=== PATIENT | male | born 1995 | race Caucasian/White ===

== ENCOUNTER 2016-07-28 21:46 | Emergency (ER) | payer BC, MEDICAID ==
[~2016-07-28] VITALS: Ht 180.3 cm; Wt 84.0 kg
[2016-07-28] MEDS ORDERED: ONDANSETRON 4 MG (ZOFRAN) TABLET PO ONE (22:45)
[2016-07-28] MEDS ORDERED: LOPERAMIDE 2 MG (IMODIUM) CAP PO ONE (22:45)
[2016-07-28] MEDS ORDERED: DICYCLOMINE 10 MG (BENTYL) CAP PO ONE (22:45)
[2016-07-28 23:17] LABS: INFLUENZA VIRUS TYPE A ANTIBOD Negative (NEGATIVE); INFLUENZA VIRUS TYPE B ANTIBOD Negative (NEGATIVE)
[2016-07-28] MEDS ORDERED: PROMETHAZINE 25 MG/ML (PHENERGAN) 1 ML VIAL IM ONE (23:30)
[2016-07-29] MEDS ORDERED: ED- PROMETHAZINE 25 MG (PHENERGAN) 10 TABLETS/BTL PO ONE (00:15)
[2016-07-29 00:26] VITALS: BP 144/78
== END 2016-07-29 00:25 | disposition home or self-care (01) ==
LOC: ED 21:47
DX: A08.4 Viral intestinal infection, unspecified (principal); R19.7 Diarrhea, unspecified
CPT/HCPCS: 87502; 96372; 99282; J2550; 99283

== ENCOUNTER → 2016-08-03 | Outpatient (REF) | payer BC | LOC: LAB 08:30 | PROVIDERS: ATTEND Family Medicine | DX: R19.7 Diarrhea, unspecified (principal) | CPT/HCPCS: 87507 ==